=== PATIENT | male | born 1980 | race Caucasian/White ===

== ENCOUNTER 2018-07-30 17:47 | Emergency (ER) | payer MEDICAID | END 2018-07-31 01:00 | disposition home or self-care (01) | LOC: ED 17:47 ==

== ENCOUNTER 2019-05-02 14:52 | Emergency (ER) | payer MEDICAID ==
[~2019-05-02] VITALS: Ht 172.7 cm; Wt 103.5 kg
[2019-05-02 15:02] VITALS: Ht 172.7 cm; Wt 103.5 kg
[2019-05-02 16:20] VITALS: BP 148/84
== END 2019-05-02 16:20 | disposition home or self-care (01) ==
LOC: ED 14:52
DX: S61.412A Laceration without foreign body of left hand, initial encounter (principal); X58.XXXA Exposure to other specified factors, initial encounter; Y93.89 Activity, other specified; Y92.89 Other specified places as the place of occurrence of the external cause; Y99.8 Other external cause status
CPT/HCPCS: 90715; J2001; Q0092